=== PATIENT | female | born 1945 | race Caucasian/White ===

== ENCOUNTER → 2017-01-12 | Outpatient (CLI) | payer MEDICARE, OTHER ==
[2015-09-10 10:39] VITALS: BP 132/63
[~2017-01-12] MED LIST: ASPI-482 PO; BENA1TAB44 PO; BENA1TAB6 PO; CARV3.122 PO; GEMF600T3 PO
--- NOTE | 2017-01-12 16:07 | RAD ---
DATE: 01/12/2017 EXAM: DIGITAL SCREEN BILAT W/CAD HISTORY: Screening COMPARISON: One year ago This study was interpreted with the benefit of Computerized Aided Detection (CAD). FINDINGS: The breast parenchyma shows scattered fibroglandular densities. Breast parenchyma level B. There is an isolated focus, just below the plane of the nipple, in the left breast on the MLO view of increased density. This almost certainly reflects summation artifact. A coned compression view and an ML view are suggested for confirmation. The right breast is unremarkable and unchanged IMPRESSION: Possible developing nodule left breast. See above discussion. BI-RADS CATEGORY: 0 INCOMPLETE: NEED ADDITIONAL IMAGING EVAULATION AND/OR PRIOR MAMMOGRAMS FOR COMPARISON RECOMMENDED FOLLOW-UP: ADD ADDITIONAL IMAGING PQRS compliance statement: Patient information was entered into a reminder system with a target due date soon for the next mammogram. Mammography is a sensitive method for finding small breast cancers, but it does not detect them all and is not a substitute for careful clinical examination. A negative mammogram does not negate a clinically suspicious finding and should not result in delay in biopsying a clinically suspicious abnormality. "Our facility is accredited by the [employer] Mammography Program."
== END | disposition home or self-care (01) ==
LOC: MAMMO 12:54
PROVIDERS: ATTEND Specialist
DX: Z12.31 Encounter for screening mammogram for malignant neoplasm of breast (principal)
CPT/HCPCS: G0202; 77067

== ENCOUNTER → 2017-01-19 | Outpatient (CLI) | payer MEDICARE ==
[2015-09-10 10:39] VITALS: BP 132/63
--- NOTE | 2017-01-19 13:35 | RAD ---
DATE: 01/19/2017 EXAM: BREAST LEFT, DIGITAL DIAGNOSTIC LT; LEFT BREAST SONOGRAM. HISTORY: 71-year-old female presents for evaluation of focal asymmetry within the left breast demonstrated on a recent screening mammogram dated 01/12/2017. COMPARISON: 01/12/2017 TECHNIQUE: Full field true lateral and spot compression views of the left breast are obtained. This study was interpreted with the benefit of Computerized Aided Detection (CAD). Sonographic imaging of the anterior left breast was also performed. FINDINGS: Breast parenchymal composition: Level B. The breast parenchyma shows scattered fibroglandular densities. There is no persistent finding of concern within the left breast with additional mammographic views, confirming summation artifact on the prior study. There are multiple benign calcifications. Sonographic imaging of the left breast and a straight is no suspicious abnormality. IMPRESSION: No persistent suspicious mammographic or sonographic finding within the left breast. BI-RADS CATEGORY: 2 BENIGN FINDING RECOMMENDED FOLLOW-UP: 12M 12 MONTH FOLLOW-UP PQRS compliance statement: Patient information was entered into a reminder system with a target due date in one year for the next mammogram. Mammography is a sensitive method for finding small breast cancers, but it does not detect them all and is not a substitute for careful clinical examination. A negative mammogram does not negate a clinically suspicious finding and should not result in delay in biopsying a clinically suspicious abnormality. "Our facility is accredited by the [employer] Mammography [employer]."
== END | disposition home or self-care (01) ==
LOC: MAMMO 12:12
PROVIDERS: ATTEND Specialist
DX: N63 Unspecified lump in breast (principal)
CPT/HCPCS: 76641; G0206; 77065

== ENCOUNTER → 2017-01-26 | Outpatient (CLI) | payer MEDICARE, OTHER ==
[2015-09-10 10:39] VITALS: BP 132/63
--- NOTE | 2017-01-26 16:10 | KCIC ---
PROCEDURE Left wrist, three views. HISTORY Left wrist and swelling, fell 1 month ago. COMPARISON None. FINDINGS Mild 1st CMC degenerative change. Moderate osteophyte formation of the thumb IP joint. There may be joint space narrowing of the 2nd and 3rd MCP. Slight widening scapholunate distance although less than 5 millimeters. Mild radiocarpal degenerative change. No acute fracture or dislocation. No soft tissue swelling is seen radiographically. IMPRESSION 1. No acute fracture. 2. Degenerative changes as above. Electronically signed by: Chuy Castellon MD (Jan 26, 2017 16:08:47)
== END | disposition home or self-care (01) ==
LOC: KCIC 14:48
PROVIDERS: ATTEND Specialist
DX: M25.532 Pain in left wrist (principal); W19.XXXA Unspecified fall, initial encounter; Y93.89 Activity, other specified; Y92.89 Other specified places as the place of occurrence of the external cause; Y99.8 Other external cause status
CPT/HCPCS: 73110

== ENCOUNTER → 2017-02-08 | Outpatient (CLI) | payer MEDICARE, OTHER ==
[2015-09-10 10:39] VITALS: BP 132/63
--- NOTE | 2017-02-08 11:36 | RAD ---
PROCEDURE MR of the left wrist HISTORY Left lateral wrist pain and swelling after a fall 2 months ago. History of carpal tunnel surgery. TECHNIQUE Routine multiplanar sequences are obtained. COMPARISON None FINDINGS Mild motion degradation. No evidence of a triangular fibrocartilage tear. Extensor carpi ulnaris tendon is subluxed medially, perched and deformed over the ulnar styloid. No evidence rupture or significant fluid. The other extensor compartments are intact. Flexor tendons are intact. Median nerve is unremarkable. Rupture of the scapholunate ligament. Widening of the scapholunate space which measures 5 millimeters. There appears to be an increased scapholunate angle. Lunotriquetral ligament is without evidence of a tear. No evidence of a bone lesion. No acute fracture. There is some fluid signal anterior to the radioscaphoid joint may represent joint effusion versus a ganglion, but detail is obscured by motion degradation. IMPRESSION 1. Scapholunate ligament rupture with increased scapholunate angle. 2. 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 3. Ganglion cyst or joint effusion at the anterior radioscaphoid joint. Electronically signed by: Ricardo Soto MD (Feb 08, 2017 11:34:54)
== END | disposition home or self-care (01) ==
LOC: MRI 09:47
PROVIDERS: ATTEND Specialist
DX: M25.532 Pain in left wrist (principal); M25.432 Effusion, left wrist
CPT/HCPCS: 73221

== ENCOUNTER → 2018-02-01 | Outpatient (CLI) | payer MEDICARE, OTHER | END | disposition home or self-care (01) | LOC: MAMMO 09:29 | DX: Z12.31 Encounter for screening mammogram for malignant neoplasm of breast (principal) | CPT/HCPCS: 77063; 77067 ==

== ENCOUNTER → 2018-04-08 | Outpatient (CLI) | payer MEDICARE, OTHER | END | disposition home or self-care (01) | LOC: KCIC CT 13:25 | DX: M19.032 Primary osteoarthritis, left wrist (principal) | CPT/HCPCS: 73200 ==

== ENCOUNTER → 2019-03-07 | Outpatient (CLI) | payer MEDICARE, OTHER ==
[2015-09-10 10:39] VITALS: BP 132/63
[~2019-03-07] MED LIST changes: +CARV3.1210 PO; -CARV3.122 PO; -GEMF600T3 PO; +GEMF600T8 PO
--- NOTE | 2019-03-08 09:37 | RAD ---
DATE: 03/07/2019 EXAM: MAMMO DIXIE SCREENING BILATERAL HISTORY: Routine screening COMPARISON: 02/01/2018 This study was interpreted with the benefit of Computerized Aided Detection (CAD). Breast Density: HETERO The breast parenchyma is heterogenously dense, which could reduce sensitivity of mammography. Breast parenchyma level C. FINDINGS: 2-D and 3-D tomosynthesis imaging was performed in CC and MLO projections. No new or enlarging breast densities are seen. Scattered benign type calcifications are present. No suspicious microcalcifications have developed. IMPRESSION: Stable mammograms without evidence of malignancy. BI-RADS CATEGORY: 2 BENIGN FINDING(S) RECOMMENDED FOLLOW-UP: 12M 12 MONTH FOLLOW-UP PQRS compliance statement: Patient information was entered into a reminder system with a target due date for the next mammogram. Mammography is a sensitive method for finding small breast cancers, but it does not detect them all and is not a substitute for careful clinical examination. A negative mammogram does not negate a clinically suspicious finding and should not result in delay in biopsying a clinically suspicious abnormality. "Our facility is accredited by the [employer] Mammography [employer]."
== END | disposition home or self-care (01) ==
LOC: MAMMO 14:32
PROVIDERS: ATTEND Specialist
DX: Z12.31 Encounter for screening mammogram for malignant neoplasm of breast (principal); N64.89 Other specified disorders of breast
CPT/HCPCS: 77063; 77067